=== PATIENT | female | born 1995 | race Two or more races ===

== ENCOUNTER 2017-08-02 08:54 | Emergency (ER) | payer OTHER ==
[2017-08-02] MEDS ORDERED: ONDANSETRON 4 MG/2 ML VIAL IVPB ONE (09:17)
[2017-08-02] MEDS ORDERED: SODIUM CHLORIDE 1,000 ML IV STA (09:17)
--- NOTE | 2017-08-02 09:18 | PDOC ---
History of Present Illness - General Chief Complaint: Nausea/Vomiting Stated Complaint: VOMITING Time Seen by Provider: 08/02/17 09:14 - History of Present Illness Initial Comments: 08/02/17 10:15 Chief complaint: Nausea and vomiting History of present illness: Awoke at 3 AM with nausea, vomited 3, clear fluid. One episode of loose stool. Mild nausea persists but no further vomiting. Family member with similar gastrointestinal illness. No suspicious ingestions. Menses regular, denies possibility of Review of systems: As above. In addition, denies fever/chills, headache, URI symptoms, sore throat, cough, chest pain, shortness of breath, abdominal pain, visual or focal neurologic symptoms, unsteadiness of gait. Remainder systems reviewed and found to be negative Past medical history: Healthy female, no significant medical or surgical problems past her present, no GI disease or gastritis surgery Social/family history reviewed and noncontributory Physical exam: Alert and oriented cheerful and cooperative no acute distress. Afebrile, vital signs normal No pallor or icterus. PERRLA, fundi benign, ENT clear Neck supple without bruit mass or nodes Lungs clear with full breath sounds throughout bilaterally. No wheezes rales or rhonchi CV S1 and S2 normal without murmur rub or gallop pulses full and symmetric no JVD or edema Abdomen nondistended. Bowel sounds normal. Soft without masses tenderness organomegaly. No CVAT Extremities no CCE Skin clear, no rash, adequate turgor and wet mucous membranes Neurological intact Impression: Probable viral gastroenteritis, mild to moderate, rule out occult Plan: Urinalysis and hCG, CBC and chemistries, IV fluids and Zofran. Observation and monitoring. Past History - Past Medical History Allergies/Adverse Reactions: Allergies Allergy/AdvReac Type Severity Reaction Status Date / Time No Known Allergies Allergy Verified 08/02/17 08:55 Home Medications: Ambulatory Orders Ondansetron [Zofran Odt -] 4 mg SL TID PRN #15 od.tablet 08/02/17 ED Treatment Course - LABORATORY CBC & Chemistry Diagram: 08/02/17 09:38 08/02/17 09:38 Medical Decision Making - Medical Decision Making 08/02/17 10:57 No further nausea vomiting or pain. Taking by mouth fluids. Discharged with mother in no distress to follow-up as recommended. *DC/Admit/Observation/Transfer Diagnosis at time of Disposition: Viral gastroenteritis - Discharge Dispostion Disposition: HOME Condition at time of disposition: Improved Admit: No - Prescriptions Prescriptions: Ondansetron [Zofran Odt -] 4 mg SL TID PRN #15 od.tablet PRN Reason: Nausea And/Or Vomiting - Referrals - Patient Instructions Printed Discharge Instructions: DI for Nausea -- Adult, DI for Vomiting -- Adult - Post Discharge Activity
[2017-08-02] MEDS ORDERED: ONDANSETRON 4 MG/2 ML VIAL ONE (09:34)
[2017-08-02 09:44] VITALS: BP 139/80; PULSE 62; TEMP 98.2; BMI 25.0
[2017-08-02 10:05] LABS: HEMATOCRIT 44.2 % (32.4-45.2); HEMOGLOBIN 14.4 GM/dl (10.7-15.3); MCH 29.5 pg (25.7-33.7); MCHC 32.5 g/dl (32.0-36.0); MEAN CELL VOLUME 90.8 fl (80-96); MEAN PLT VOLUME 10.2 fl (7.5-11.1); PLATELET COUNT 216 K/MM3 (134-434); RBC 4.87 M/mm3 (3.60-5.2); WHITE BLOOD COUNT 10.3 K/mm3 (4.0-10.8)
[2017-08-02 10:15] LABS: ALBUMIN 4.4 g/dl (3.5-5.0); ALK PHOS 46 U/L (32-92); ANION GAP 10 (8-16); BILIRUBIN,TOTAL 0.8 mg/dl (0.2-1.0); BLOOD UREA NITROGEN 15 mg/dl (7-18); CALCIUM 9.6 mg/dl (8.4-10.2); CHLORIDE 105 mmol/L (98-107); CO2 24 mmol/L (22-28); CREATININE 0.7 mg/dl (0.6-1.3); GLUCOSE,RANDOM 100 mg/dl (74-106); LIPASE 23 U/L (22-51); POTASSIUM 4.1 mmol/L (3.5-5.1); SGOT/AST 16 U/L (10-42); SGPT/ALT 15 U/L (10-40); SODIUM 139 mmol/L (136-145)
[2017-08-02 10:45] LABS: PH,URINE 7.5 (4.5-8); URINE APPEARANCE Slightly; URINE BILIRUBIN Negative (NEGATIVE); URINE BLOOD Negative (NEGATIVE); URINE GLUCOSE (UA) Negative (NEGATIVE); URINE KETONE 2+ (NEGATIVE); URINE NITRITE Negative (NEGATIVE); URINE PROTEIN Negative (NEGATIVE); URINE UROBILINOGEN 0.2 (0.2-1.0)
[2017-08-02 10:47] LABS: HCG,QUALITATIVE URINE NEGATIVE
[2017-08-02 10:48] LABS: URINE COLOR YELLOW
[2017-08-02 11:52] LABS: PLATELET ESTIMATE ADEQUATE
== END 2017-08-02 11:13 | disposition home or self-care (01) ==
LOC: FER 08:54
PROC: 3E033GC Introduction of Other Therapeutic Substance into Peripheral Vein, Percutaneous Approach (ICD-10-PCS; principal; 2017-08-02)
PROC: 3E0337Z Introduction of Electrolytic and Water Balance Substance into Peripheral Vein, Percutaneous Approach (ICD-10-PCS; 2017-08-02)
DX: A08.4 Viral intestinal infection, unspecified (principal)
CPT/HCPCS: 36415; 80053; 81003; 83690; 84703; 85025; 99282-25